=== PATIENT | female | born 1960 | race Caucasian/White ===

== ENCOUNTER 2016-08-26 11:42 | Emergency (ER) | payer SELFPAY ==
[~2016-08-26] VITALS: Ht 147.3 cm; Wt 90.0 kg
[2016-08-26 12:27] LABS: CARBON DIOXIDE 30 mEq/L (21-32); CHLORIDE 100 mEq/L (98-107)
[2016-08-26 12:32] LABS: TROPONIN I < 0.02 ng/mL (0.00-0.04)
[2016-08-26 12:33] LABS: BASOPHILS % 0.4 % (0.0-2.0); EOSINOPHILS % 2.1 % (0.0-5.0); HEMATOCRIT. 42.3 % (36.0-48.0); HEMOGLOBIN. 14.8 g/dL (12.0-16.0); MEAN CORPUSCULAR HEMOGLOBIN 31.3 pg (28.0-32.0); MEAN CORPUSCULAR VOLUME 89.7 fL (81.0-99.0); MEAN PLATELET VOLUME 8.4 fl (7.4-10.4); MONOCYTES % 5.4 % (2.0-8.0); NEUTROPHILS % 61.1 % (40.0-76.0); PLATELET 366 x1000/uL (130-400); RED BLOOD CELL COUNT 4.72 mill/uL (4.2-5.4); RED CELL DISTRIBUTION WIDTH 14.3 % (11.6-14.6)
[2016-08-26 12:46] LABS: INR 1.1; PROTHROMBIN TIME 11.1 sec
[2016-08-26 13:03] VITALS: BP 148/85
== END 2016-08-26 13:04 | disposition home or self-care (01) ==
LOC: ER 11:49
DX: R00.2 Palpitations (principal); E66.9 Obesity, unspecified; E87.6 Hypokalemia; R73.9 Hyperglycemia, unspecified; Z68.41 Body mass index [BMI] 40.0-44.9, adult
CPT/HCPCS: 36415; 71010; 80053; 83880; 84484; 85025; 85610; 93005; 99285